=== PATIENT | male | born 1960 | race American Indian/Alaskan Native ===

== ENCOUNTER 2020-04-23 20:59 | Emergency (ER) | payer MEDICARE ==
[2020-04-23 23:00] LABS: Basophils # (Auto) 0.1 K/mm3 (0.0-0.1); Basophils % (Auto) 0.6 % (0.0-1.8); Eosinophils # (Auto) 0.3 K/mm3 (0.0-0.4); Eosinophils % (Auto) 3.7 % (0.0-4.3); Hematocrit 39.8 % (35.5-45.6); Hemoglobin 13.6 gm/dl (11.8-15.2); Lymphocytes # (Auto) 1.7 K/mm3 (1.2-5.4); Lymphocytes % (Auto) 20.6 % (13.4-35.0); Mean Corpuscular HGB Conc 34 % (32-34); Mean Corpuscular Volume 89 fl (84-94); Monocytes # (Auto) 1.2 K/mm3 (0.0-0.8); Monocytes % (Auto) 14.3 % (0.0-7.3); Platelet Count 244 K/mm3 (140-440); Red Blood Count 4.49 M/mm3 (3.65-5.03); Red Cell Distribution Width 16.5 % (13.2-15.2)
[2020-04-23 23:15] LABS: Bilirubin,Urine NEG (Negative); Blood,Urine LG (Negative); Color,Urine Yellow (Yellow); Hyaline Casts,Urine 3 /LPF; Mucus,Urine FEW /HPF; Urobilinogen,Urine < 2.0 mg/dL (<2.0)
[2020-04-23 23:18] LABS: RBC,Urine > 182.0 /HPF (0.0-6.0)
[2020-04-23 23:21] LABS: Alanine Aminotransferase 8 units/L (7-56); BUN/Creatinine Ratio 19; Blood Urea Nitrogen 27 mg/dL (9-20); Calcium 9.4 mg/dL (8.4-10.2); Hemolysis Index 23
[2020-04-24] MEDS ORDERED: SODIUM CHLORIDE 0.9% 1000 ML 1,000 ML IV ONE (00:47)
[2020-04-24] MEDS ORDERED: cefTRIAXone/NS 1 GM/50 ML 1 GM/50 ML BAG IV ONE (00:47)
[2020-04-24] MEDS ORDERED: KETOROLAC 30 MG/1 ML INJ IV ONE (00:59)
[2020-04-24] MEDS ORDERED: ONDANSETRON 4 MG/2 ML INJ IV ONE (00:59)
[2020-04-24] MEDS ORDERED: MORPHINE 4 MG/1 ML INJ IV ONE (00:59)
--- NOTE | 2020-04-24 01:19 | Emergency Department Report ---
ED Male HPI - General Chief complaint: Urogenital-Male Stated complaint: RT SIDE FLANK PAIN Time Seen by Provider: 04/24/20 00:46 Source: patient Mode of arrival: Ambulatory Limitations: No Limitations - History of Present Illness Initial comments: 60-year-old male with a past medical history of hypertension, chronic back pain, chronic pain, and enlarged prostate with recent prostate biopsy and left renal stent placement presents to the hospital complaining of right flank pain. Patient states he initially had a left renal stent placed 2 months ago due to ureter obstruction in the absence of kidney stones. Patient pulled out the stent as instructed by his urologist. Patient's left flank pain reoccurred and therefore a stent was replaced on April 18. Plan is to keep in stent for least 1 month. Patient followed up in the office on April 22 and had his Fink catheter removed. Patient states he has had right flank pain with urination s jorge alberto Fink catheter removal that has been worsening. Pain is constant, worse with movement and palpation. He denies nausea, vomiting, or fever. Patient having burning with urination, frequency, difficulty starting stream, and decreased urine output. Positive hematuria reported. Patient is on an unknown antibiotic. Patient's urologist is not [place] and patient cannot recall the name of the Urologist. Patient states when his Fink was placed he was having a lot of leakage around the catheter from the penis and his pain with urination developed at that time. During ED stay patient was able to provide the urologist name. Dr. Brayden Lima with [facility] - Related Data Previous Rx's Medication Instructions Recorded Last Taken Type HYDROcodone/APAP 5-325 [Danese 1 each PO Q6HR PRN #15 tablet 04/24/20 Unknown Rx 5/325] levoFLOXacin [Levaquin] 750 mg PO QDAY #7 tablet 04/24/20 Unknown Rx Allergies Allergy/AdvReac Type Severity Reaction Status Date / Time No Known Allergies Allergy Unverified 04/23/20 21:02 ED Review of Systems ROS: Stated complaint: RT SIDE FLANK PAIN Other details as noted in HPI Comment: All other systems reviewed and negative ED Past Medical Hx - Past Medical History Hx Hypertension: Yes Hx Renal Disease: Yes Additional medical history: chronic neck and back pain, enlarged prostate - Surgical History Hx Appendectomy: Yes Additional Surgical History: left renal stents, neck, back - Social History Smoking Status: Current Every Day Smoker Substance Use Type: Alcohol - Medications Home Medications: Home Medications Medication Instructions Recorded Confirmed Last Taken Type HYDROcodone/APAP 5-325 [Danese 1 each PO Q6HR PRN #15 tablet 04/24/20 Unknown Rx 5/325] levoFLOXacin [Levaquin] 750 mg PO QDAY #7 tablet 04/24/20 Unknown Rx ED Physical Exam - General Limitations: No Limitations - Other Other exam information: General: No acute distress Head: Atraumatic Eyes: normal appearance ENT: Moist mucous membranes Neck: Normal appearance, no midline tenderness Chest: Clear to auscultation bilaterally CV: Regular rate and rhythm Abdomen: Soft, normal bowel sounds, right flank and right upper and lower quadrant tenderness to palpation without rebound or guarding Back: Normal inspection Extremity: Normal inspection, full range of motion Neuro: Alert O x 3, no facial asymmetry, speech clear, no gross motor sensory deficit Psych: Appropriate behavior Skin: No rash ED Course Vital Signs 04/23/20 04/24/20 04/24/20 21:05 00:55 01:07 Temperature 98.3 F Pulse Rate 94 H 78 Respiratory 18 16 Rate Blood Pressure 160/99 Blood Pressure 134/91 [Left] O2 Sat by Pulse 99 98 97 Oximetry 04/24/20 04/24/20 04/24/20 01:15 01:45 02:01 Temperature Pulse Rate Respiratory Rate Blood Pressure 135/96 Blood Pressure [Left] O2 Sat by Pulse 96 95 Oximetry 04/24/20 04/24/20 04/24/20 02:15 02:31 02:45 Temperature Pulse Rate Respiratory Rate Blood Pressure Blood Pressure [Left] O2 Sat by Pulse 94 98 91 Oximetry 04/24/20 04/24/20 04/24/20 03:01 03:15 03:31 Temperature Pulse Rate Respiratory Rate Blood Pressure Blood Pressure [Left] O2 Sat by Pulse 98 97 98 Oximetry - Consultations Consultation #1: 04/24/20 03:40 call placed to [facility] for [facility]rology consult 04/24/20 04:46 case d/w Dr Joya Urologist with [facility]. She is not familiar with the patient. She will evaluate his chart and call back 04/24/20 04:55 Dr Joya called back and states as per medical record pt's cr was 0.7 8/20 pt's prostate biopsy was negative for cancer Pt was on keflex as per medical record. states pt may be placed on levaquin encourages f/u today with his Urologist. The office can typically fit pt in. Call in am. ED Medical Decision Making - Lab Data Result diagrams: 04/23/20 22:36 04/23/20 22:36 Lab Results 04/23/20 04/23/20 04/23/20 Range/Units 22:32 22:36 22:36 WBC 8.3 (4.5-11.0) K/mm3 RBC 4.49 (3.65-5.03) M/mm3 Hgb 13.6 (11.8-15.2) gm/dl Hct 39.8 (35.5-45.6) % MCV 89 (84-94) fl MCH 30 (28-32) pg MCHC 34 (32-34) % RDW 16.5 H (13.2-15.2) % Plt Count 244 (140-440) K/mm3 Lymph % (Auto) 20.6 (13.4-35.0) % [place] % (Auto) 14.3 H (0.0-7.3) % Eos % (Auto) 3.7 (0.0-4.3) % Baso % (Auto) 0.6 (0.0-1.8) % Lymph # 1.7 (1.2-5.4) K/mm3 [place]man # 1.2 H (0.0-0.8) K/mm3 Eos # 0.3 (0.0-0.4) K/mm3 Baso # 0.1 (0.0-0.1) K/mm3 Seg Neutrophils % 60.8 (40.0-70.0) % Seg Neutrophils # 5.1 (1.8-7.7) K/mm3 Sodium 141 (137-145) mmol/L Potassium 5.0 (3.6-5.0) mmol/L Chloride 104.6 (98-107) mmol/L Carbon Dioxide 22 (22-30) mmol/L Anion Gap 19 mmol/L BUN 27 H (9-20) mg/dL Creatinine 1.4 H (0.8-1.3) mg/dL Estimated GFR > 60 ml/min BUN/Creatinine Ratio 19 % Glucose 110 H (75-100) mg/dL Calcium 9.4 (8.4-10.2) mg/dL Total Bilirubin 0.30 (0.1-1.2) mg/dL AST 15 (5-40) units/L ALT 8 (7-56) units/L Alkaline Phosphatase 78 (35-129) units/L Total Protein 7.5 (6.3-8.2) g/dL Albumin 4.0 (3.9-5) g/dL Albumin/Globulin Ratio 1.1 % Urine Color Yellow (Yellow) Urine Turbidity Slightly-cloudy (Clear) Urine pH 6.0 (5.0-7.0) Ur Specific [place] 1.013 (1.003-1.030) Urine Protein 100 mg/dl (Negative) mg/dL Urine Glucose (UA) Neg (Negative) mg/dL Urine Ketones Neg (Negative) mg/dL Urine Blood Lg (Negative) Urine Nitrite Neg (Negative) Urine Bilirubin Neg (Negative) Urine Urobilinogen < 2.0 (<2.0) mg/dL Ur Leukocyte Esterase Mod (Negative) Urine WBC (Auto) 41.0 H (0.0-6.0) /HPF Urine RBC (Auto) > 182.0 (0.0-6.0) /HPF U Epithel Cells (Auto) < 1.0 (0-13.0) /HPF Hyaline Casts 3 /LPF Urine Mucus Few /HPF Urine Yeast (Budding) 2+ /HPF - Radiology Data Radiology results: report reviewed CT ABDOMEN AND PELVIS WITHOUT CONTRAST INDICATION: Right-sided flank pain. History of recent ureteral stent placement. TECHNICAL: Multiple axial CT images of the abdomen and pelvis were acquired without intravenous contrast. Sagittal and coronal reformats were obtained. All CTs at this [facility] utilize dose reduction techniques including automated exposure control, iterative reconstruc tion and weight based dosing when appropriate to reduce patient radiation dose to as low as reasona ble achievable. COMPARISON: No prior studies are available for comparison. FINDINGS: Limited imaging of the bilateral lung bases demonstrates dependent atelectasis. Abdomen: Within the limitations of today's noncontrast study, the liver, gallbladder, spleen, pancreas and bilateral adrenal glands show no evidence of acute abnormality. There is mild nonspecific prominence of the pancreatic duct. There is mild to moderate right-sided hydronephrosis and hydroureter with associated perinephric stranding. No obstructing renal or ureteral stone is visualized. There is mild to moderate left-sided hydronephrosis and hydroureter. A left- sided ureteral stent is present. The proximal end resides in the proximal left ureter. The abdominal aorta is normal in caliber. There is no evidence of bowel obstruction. The appendix is not clearly identified, but no pericecal inflammatory changes are noted. Pelvis: The appearance of the urinary bladder is abnormal with diffuse concentri c wall thickening and inflammatory change. There are several low-density outpouchings along the superior and right lateral holt which may be related to bladder diverticula. The distal and of the left-sided ureteral stent resides in the bladder. The prostate gland is mildly enlarged. Bones and Soft Tissues: Evaluation of bony structures demonstrates no evidence of destructive bony lesion. Evaluation of soft tissues demonstrates no evidence of acute soft tissue abnormality. IMPRESSION: 1. Mild to moderate bilateral hydronephrosis, hydroureter and perinephric stranding. There is also inflammatory stranding along the course of both ureters. The urinary bladder also demonstrates diffuse thick-walled inflammatory change and probable multiple bladder diverticula. Overall, findings may suggest a diffuse infectious or inflammatory process. Please correlate with patient's clinical circumstances. - Medical Decision Making Patient presents to the hospital complaining of this urinary symptoms and new right flank pain. UA positive for infection and hematuria, mild renal insufficiency noted, and CT positive for bilateral hydronephrosis as well as urinary bladder abnormalities. Patient refuses repeat cath placement. Patient is feeling better with ED pain medications. I was able to reach the on-call urologist to [facility] who was able to review medical record. States that previous creatinine was 0.7 and patient was most recently on Keflex antibiotic. PT states he will take his last abx dose today. Mild elevation in c reatinine today treated with Normal Saline since BUN also elevated. Since symptoms have improved with treatment recommend follow-up today in the office if possible and to call his urologist in the a.m. patient will be discharged on Levaquin and Danese for pain. Patient refuses Fink catheter placement but no significant bladder distention on CT. Critical Care Time: No Critical care time in (mins) excluding proc time.: 35 Critical care attestation.: If time is entered above; I have spent that time in minutes in the direct care of this critically ill patient, excluding procedure time. ED Disposition Clinical Impression: Bilateral hydronephrosis, Pyelonephritis, S/P ureteral stent placement, Renal insufficiency, Right flank pain, Bladder infection Disposition: TO HOME OR SELFCARE Is pt being admited?: No Does the pt Need Aspirin: No Condition: Stable Instructions: Acute Pyelonephritis (ED), Urinary Tract Infection in Men (ED), Impaired Kidney Function (ED) Additional Instructions: Finish your current antibiotic and start then antibiotic prescribed. You were given a 7-day supply which may need an antibiotic for additional days which can be prescribed by your urologist Call your urologist this morning to see if they can see you in the office today or as soon as possible. Inform them you were in the ER overnight and the on- call urologist for [facility] recommend close follow-up today Take the copy of your labs and CAT scan report to your urologist for review. Return if symptoms worsen as indicated by your discharge instructions. Prescriptions: levoFLOXacin [Levaquin] 750 mg PO QDAY #7 tablet HYDROcodone/APAP 5-325 [Danese 5/325] 1 each PO Q6HR PRN #15 tablet PRN Reason: Pain Referrals: LAMONT LOVE DO [Primary Care Provider] - 3-5 Days Brayden Lima MD [Other] - [facility] (your urologist. Follow up today if possible, call office first thing in am. ) Time of Disposition: 05:23
--- NOTE | 2020-04-24 02:10 | Cat Scan Report ---
CT ABDOMEN AND PELVIS WITHOUT CONTRAST INDICATION: Right-sided flank pain. History of recent ureteral stent placement. TECHNICAL: Multiple axial CT images of the abdomen and pelvis were acquired without intravenous contr ast. Sagittal and coronal reformats were obtained. All CTs at this facility utilize dose reduction techniques including automated exposure control, iterative reconstruction and weight based dosing whe n appropriate to reduce patient radiation dose to as low as reasonable achievable. COMPARISON: No prior studies are available for comparison. FINDINGS: Limited imaging of the bilateral lung bases demonstrates dependent atelectasis. Abdomen: Within the limitations of today's noncontrast study, the liver, gallbladder, spleen, pancrea s and bilateral adrenal glands show no evidence of acute abnormality. There is mild nonspecific promi nence of the pancreatic duct. There is mild to moderate right-sided hydronephrosis and hydroureter with associated perinephric stra nding. No obstructing renal or ureteral stone is visualized. There is mild to moderate left-sided hydronephrosis and hydroureter. A left-sided ureteral stent is p resent. The proximal end resides in the proximal left ureter. The abdominal aorta is normal in caliber. There is no evidence of bowel obstruction. The appendix is not clearly identified, but no pericecal inflammatory changes are noted. Pelvis: The appearance of the urinary bladder is abnormal with diffuse concentric wall thickening and inflammatory change. There are several low-density outpouchings along the superior and right lateral holt which may be related to bladder diverticula. The distal and of the left-sided ureteral stent r esides in the bladder. The prostate gland is mildly enlarged. Bones and Soft Tissues: Evaluation of bony structures demonstrates no evidence of destructive bony l esion. Evaluation of soft tissues demonstrates no evidence of acute soft tissue abnormality. IMPRESSION: 1. Mild to moderate bilateral hydronephrosis, hydroureter and perinephric stranding. There is also in flammatory stranding along the course of both ureters. The urinary bladder also demonstrates diffuse thick-walled inflammatory change and probable multiple bladder diverticula. Overall, findings may sug gest a diffuse infectious or inflammatory process. Please correlate with patient's clinical circumsta nces. Signer Name: Jaycee Valdovinos MD Signed: 04/24/2020 2:05 AM Workstation Name: [id number]
[2020-04-24 05:49] VITALS: BP 130/93
== END 2020-04-24 05:50 | disposition home or self-care (01) ==
LOC: ED 20:59
DX: N12 Tubulo-interstitial nephritis, not specified as acute or chronic (principal); N13.30 Unspecified hydronephrosis; N30.90 Cystitis, unspecified without hematuria; N28.9 Disorder of kidney and ureter, unspecified; R10.9 Unspecified abdominal pain; I10 Essential (primary) hypertension; F17.200 Nicotine dependence, unspecified, uncomplicated; Z79.899 Other long term (current) drug therapy; Z90.49 Acquired absence of other specified parts of digestive tract; Z98.890 Other specified postprocedural states; Z96.0 Presence of urogenital implants
CPT/HCPCS: 36415; 74176; 80053; 81001; 85025; 87086; 96365; 96375; 99284; J0696; J1885; J2270; J2405; J7030